=== PATIENT | male | born 1995 | race Caucasian/White ===

== ENCOUNTER 2021-08-14 21:38 | Emergency (ER) | payer OTHER ==
[~2021-08-14] VITALS: Ht 175.3 cm; Wt 92.5 kg
[2021-08-14 23:17] LABS: BASO # 0.1 10^3/uL (0.0-0.2); BASO % 0.3 % (0.0-1.0); EOS # 0.2 10^3/uL (0.0-0.5); EOS % 1.1 % (0.0-3.0); HEMATOCRIT 46.2 % (42.0-52.0); HEMOGLOBIN 15.8 g/dl (13.5-17.5); LYMPH # 1.3 10^3/uL (1.5-5.0); LYMPH % 7.9 % (24.0-44.0); MEAN CORPUSCULAR HEMOGLOBIN 28.3 pg (27.0-33.0); MEAN CORPUSCULAR HGB CONC 34.2 g/dl (32.0-36.5); MEAN CORPUSCULAR VOLUME 82.6 fl (80.0-96.0); MONO % 10.8 % (2.0-8.0); NEUTROPHILS # 12.5 10^3/uL (1.5-8.5); NEUTROPHILS % 79.6 % (36.0-66.0); PLATELET COUNT, AUTOMATED 231 10^3/uL (150-450); RED BLOOD COUNT 5.59 10^6/uL (4.30-6.10); WHITE BLOOD COUNT 15.7 10^3/uL (4.0-10.0)
[2021-08-14 23:35] LABS: MONO # 1.7 10^3/uL (0.0-0.8)
[2021-08-14 23:54] LABS: ALBUMIN 4.1 GM/DL (3.2-5.2); ALT/SGPT 43 U/L (12-78); BILIRUBIN,DIRECT 0.4 MG/DL (0.0-0.2); BILIRUBIN,TOTAL 0.8 MG/DL (0.2-1.0); BLOOD UREA NITROGEN 10 MG/DL (7-18); CALCIUM LEVEL 9.1 MG/DL (8.5-10.1); CARBON DIOXIDE LEVEL 29 MEQ/L (21-32); CHLORIDE LEVEL 105 MEQ/L (98-107); CREATININE FOR GFR 0.88 MG/DL (0.70-1.30); GLOMERULAR FILTRATION RATE > 60.0 (>60); GLUCOSE, FASTING 105 MG/DL (70-100); LIPASE 110 U/L (73-393); POTASSIUM SERUM 3.5 MEQ/L (3.5-5.1); SODIUM LEVEL 139 MEQ/L (136-145); TOTAL PROTEIN 7.7 GM/DL (6.4-8.2)
[2021-08-15] MEDS ORDERED: KETOROLAC 30 MG/ML 1ML VIAL IV ONE (02:55)
[2021-08-15] MEDS ORDERED: ONDANSETRON 4MG/2ML VIAL IV ONE (02:55)
[2021-08-15] MEDS ORDERED: ISOVUE-370 76% 100ML VIAL As Ordered ONE (02:59)
[2021-08-15] MEDS ORDERED: ONDA4TAB6 PO (06:26)
[2021-08-15 06:32] VITALS: BP 124/65
== END 2021-08-15 06:41 | disposition home or self-care (01) ==
LOC: M ED 21:38
DX: A08.4 Viral intestinal infection, unspecified (principal); R59.0 Localized enlarged lymph nodes
CPT/HCPCS: 74177; 80048; 80076; 83690; 85025; 96374; 96375; 99284; J1885; J2405; Q9967

== ENCOUNTER → 2022-06-04 | Outpatient (REF) | payer OTHER ==
[~2022-06-04] MED LIST: ONDA4TAB6 PO
[2022-06-04 10:48] LABS: SEMEN APPEARANCE OPAQUE (OPAQUE); SEMEN VISCOSITY LIQUID (LIQUID); SEMEN VOLUME 1.2 ml (2.0-5.0); SPERM CONCENTRATION 5.9 M/ml (>=15.0); WBC CONCENTRATION <=1 M/ml (<=1 M/ml)
== END ==
LOC: M LAB REF 10:06
PROVIDERS: ATTEND Obstetrics & Gynecology
DX: N46.9 Male infertility, unspecified (principal)